=== PATIENT | male | born 1975 | race Caucasian/White ===

== ENCOUNTER 2019-12-25 09:44 | Emergency (ER) | payer MEDICAID ==
[~2019-12-25] VITALS: Ht 167.6 cm; Wt 77.1 kg
[2019-12-25 09:57] VITALS: BP 101/86
--- NOTE | 2019-12-25 10:00 | NUR ---
NUMBNESS AND PARESTHESIA TO L HAND X 1 MONTH. PATIENT A/OX4, AMBULATORY WITH STEADY GAIT. NO S/SX OF STROKE FROM ASSESSMENT. NEEDS ATTENDED.
--- NOTE | 2019-12-25 10:31 | NUR ---
PATIENT CAME BACK FROM CT.
== END 2019-12-25 11:38 | disposition home or self-care (01) ==
LOC: ER 09:52
DX: M54.12 Radiculopathy, cervical region (principal)
CPT/HCPCS: 72050-TC